=== PATIENT | male | born 1995 | race Caucasian/White ===

== ENCOUNTER 2019-10-02 12:33 | Emergency (ER) | payer OTHER, SELFPAY ==
[2019-10-02 12:35] VITALS: BP 106/54; PULSE 55; RESP 15; TEMP 36.8; O2SAT 98; BMI 22.6
--- NOTE | 2019-10-02 12:58 | ED.VIS.GEN ---
History of Present Illness Chief Complaint: Syncope Informant: Patient Onset: Today Context: Sudden Onset Current Severity: Mild Maximum Severity: Moderate Narrative: The patient is an otherwise healthy 24-year-old male with no significant medical history that presents to the emergency department after near syncopal episode. Patient has just started physical therapy clinicals. He was in the hospital this morning. He states that he started to feel mildly lightheaded. He then began to have tunnel vision and got diaphoretic. He states that he sat down and his vision went black for a second. He is unsure if he ever fully lost consciousness. He states he is never passed out before. He was able to drink and sit. He states he is now feeling markedly improved. When I did take his blood pressure, he was in the 70 systolic. Prior similar symptoms: No Recent Illness/Hospitalization: No Past Medical History - Allergies and Home Meds Allergies/Adverse Reactions: Allergies No Known Allergies Allergy (Verified 09/04/14 19:28) Primary Care Physician: West Sorenson MD [Primary Care Provider] - Prior records reviewed: Yes Past Medical History: None Surgical History: no surgical history Smoking Status: Never smoker Review of Systems General: Denies: Chills, Fever, Sweats Eyes: Denies: Visual changes - bilaterally, Diplopia ENT: Denies: Rhinorrhea, Sore throat Cardiovascular: Denies: Chest pain, Palpitations Respiratory: Denies: Dyspnea, Cough, Dyspnea on exertion Gastrointestinal: Reports: Nausea. Denies: Abdominal pain, Vomiting, Diarrhea, Melena, Hematochezia Genitourinary: Denies: Dysuria, Hematuria, Frequency Musculoskeletal: Denies: Back pain, Extremity Pain Skin: Denies: Rash, Wounds Neurological: Denies: Headache, Weakness, Numbness Physical Exam Vital Signs/Narrative: Vital Signs Temp Pulse Resp BP Pulse Ox 10/02/19 12:35 98.2 F 55 L 15 106/54 L 98 Inital Vital Signs reviewed: Yes General: Well nourished, Well developed, No Acute Distress Head: Normocephalic, Atraumatic Eyes: Perrl, EOMI ENT: Moist mucous membranes, No rhinorrhea Neck: Supple, Nontender Cardiovascular: Regular rate, Regular rhythm, No murmurs Respiratory: No distress, CTA bilaterally, Chest nontender Abdomen: Soft, Nontender, Nondistended, Normal bowel sounds Back: Nontender, Normal Inspection Extremities: Nontender, No edema Skin: Normal color, No rash Neurological: Alert, Oriented x3, Cranial nerves II-XII grossly intact, Normal Strength, Normal Sensation Psychological: Normal affect, Normal Mood Diagnostic/Tx/Re-eval - Medical Decision Making EKG was obtained on patient arrival. Was sinus bradycardia. There was no prolonged QT or WPW. The patient is basically totally asymptomatic on arrival. He had a normal blood pressure. Accu-Chek was obtained was normal. Again, I do feel that this is likely vasovagal in nature. Orthostatics were obtained were unremarkable. He said no further symptoms while here. At this point, I do feel that he is safe for discharge with outpatient follow-up. He is comfortable with this plan of care. Impression 1. Vasovagal syncope ED Disposition - Plan for ED Patient: Instructions: ED VAGAL SYNCOPE Referrals: West Sorenson MD [Primary Care Provider] -
--- NOTE | 2019-10-02 13:02 | EKG12_ITS ---
Test Reason : DYSRHYTHMIA Blood Pressure : / mmHG Vent. Rate : 043 BPM Atrial Rate : 043 BPM P-R Int : 134 ms QRS Dur : 098 ms QT Int : 488 ms P-R-T Axes : -09 073 041 degrees QTc Int : 412 ms Marked sinus bradycardia Abnormal ECG Confirmed by VEDA MERCADO, DMITRY ([id number]), food editor LILIAN GARIBAY ([id number]) on 10/04/2019 12:48:33 PM Referred By: TRISH Confirmed By:DMITRY MCCOLLUM MD
[2019-10-02 13:40] LABS: Bedside Glucose 108 mg/dL (70-110)
[2019-10-02 13:59] VITALS: BP 119/56; BP 134/59; BP 139/57; PULSE 52; PULSE 54; PULSE 55
[2019-10-02 14:37] VITALS: RESP 17
[2019-10-03 15:50] LABS: Bedside Glucose 86 mg/dL (70-110)
== END 2019-10-02 14:40 | disposition home or self-care (01) ==
LOC: ED 13:17
PROVIDERS: Emergency Provider Emergency Medicine; PCP Pediatrics
DX: R55 Syncope and collapse (principal)
CPT/HCPCS: 82962; 93005; 99283